=== PATIENT | male | born 1995 | race Caucasian/White ===

== ENCOUNTER 2017-09-07 19:47 | Emergency (ER) | payer OTHER ==
[2017-09-07] MEDS ORDERED: predniSONE 20 MG TAB PO ONE (20:18)
[2017-09-07] MEDS ORDERED: CEPHALEXIN 500 MG CAP PO ONE (20:18)
[2017-09-07 20:19] VITALS: BP 120/65
--- NOTE | 2017-09-07 20:24 | EDPHY ---
H & P Stated Complaint: TTROAT PAIN, STRESS, CONGESTION AND THINGS SOMETHIN IN THROAT Time Seen by Provider: 09/07/17 20:15 - Personal History Current Tetanus/Diphtheria Vaccine: Yes Current Tetanus Diphtheria and Acellular Pertussis (TDAP): Yes - Medical/Surgical History Hx Asthma: No Hx Chronic Respiratory Disease: No Hx Diabetes: No Hx Cardiac Disease: No Hx Renal Disease: No Hx Cirrhosis: No Hx Alcoholism: No Hx HIV/AIDS: No Hx Splenectomy or Spleen Trauma: No Other PMH: DENIES - Social History Smoking Status: Never smoked Constitutional: Initial Vital Signs Temperature (C) 36.8 C 09/07/17 19:51 Heart Rate 91 09/07/17 19:51 Respiratory Rate 18 09/07/17 19:51 Blood Pressure 101/49 L 09/07/17 19:51 O2 Sat (%) 95 09/07/17 19:51 O2 Delivery Mode Room Air Allergies/Adverse Reactions: penicillin G Allergy (Verified 09/07/17 19:53) Home Medications: Medication Instructions Recorded NK [No Known Home Meds] 09/07/17 Medical Decision Making ED Course/Re-evaluation: CHIEF COMPLAINT: Sore throat HISTORY OF PRESENT ILLNESS: 21-year-old male whose had an upper respiratory infection for a few days. His throat got very sort throughout the day it is having difficulty swallowing. He denies any fevers or chills or systemic illness. He has a mild cough. He is otherwise healthy and not immunocompromised. REVIEW OF SYSTEMS: A 10 point review of systems was performed and is negative with the exception of the elements mentioned in the history of present illness. PHYSICAL EXAM: HR, BP, O2 Sat, RR. Temp noted General Appearance: Alert, well hydrated, appropriate, and non-toxic appearing. Head: Atraumatic without scalp tenderness or obvious injury Eyes: Pupils equal, round, reactive to light and accommodation, EOMI, no trauma , no injection. Ears: Clear bilaterally, no perforation, normal landmarks Nose: Atraumatic, no rhinorrhea, clear. Throat: There is significant erythema and right tonsillar exudates, no other lesions, normal tonsils, mucus membranes moist. Neck: Supple, 2+ carotid upstroke, nontender, no lymphadenopathy. Respiratory: No retractions, no distress, no wheezes, and no accessory muscle use. Lungs are clear to auscultation bilaterally. Cardiovascular: Regular rate and rhythm, no murmurs, rubs, or gallops. Bilateral carotid, radial, dorsalis pedis, and posterior tibial pulses intact. Good capillary refill all extremities. Gastrointestinal: Abdomen is soft, nontender, non-distended, no masses, no rebound, no guarding, no peritoneal signs. Musculoskeletal: Normal active ROM of all extremities, atraumatic. Neurological: Alert, appropriate, and interactive. The patient has normal DTRs and non-focal cranial nerves, motor, sensory, and cerebellar exam. Skin: No rashes, good turgor, no nodules on palpation. Past medical history: None Past surgical history: None Family history: Noncontributory Social history: Single, employed, does not abuse tobacco drugs or alcohol DIAGNOSTICS/PROCEDURES/CRITICAL CARE TIME: None needed DIFFERENTIAL DIAGNOSIS: The differential diagnosis for the patient's sore throat included but was not limited to viral pharyngitis, bacterial pharyngitis , peritonsillar abscess, is pharyngeal abscess, dental infection. MEDICAL DECISION MAKING: This patient has a classic bacterial throat infection. There are no catarrhal symptoms. I will start him on Keflex and prednisone he will follow up with primary care doctor return here for worse. He has no systemic illness of significance. Departure - Departure Disposition: Home, Routine, Self-Care Clinical Impression: Pharyngitis Qualifiers: Pharyngitis/tonsillitis etiology: other specified organisms Qualified Code(s): J02.8 - Acute pharyngitis due to other specified organisms Condition: Good Instructions: Pharyngitis (ED)
== END 2017-09-07 20:49 | disposition home or self-care (01) ==
DX: J02.9 Acute pharyngitis, unspecified (principal)
CPT/HCPCS: J7512